=== PATIENT | female | born 1990 | race Hispanic/Latino ===

== ENCOUNTER 2018-07-02 10:24 | Emergency (ER) | payer MEDICAID, MEDICARE ==
[2018-07-02 11:21] LABS: Bilirubin Negative (Negative); Blood, Urine Negative (Negative); Clarity CLEAR (Clear); Glucose, Urine (Dipstick) Negative (Negative); Leukocyte Negative (Negative); Nitrite Negative (Negative); Protein, Urine (Dipstick) Negative (Neg-Trace); Specific Gravity, Urine 1.013 (1.002-1.036); Urobilinogen 0.2 mg/dL (0.2-1.0); pH, Urine 6.5 (5.0-9.0)
[2018-07-02 11:22] LABS: Pregnancy Test - Urine (BHCG) Negative (Negative); Pregu Control Background? CLEAR/WHITE (CLR/WHITE); Pregu Control Bar Appear? YES (CONTROL BAR); Specific Gravity 1.013 (1.002-1.036)
[2018-07-02 11:29] LABS: #Basophils 0.1 thou/uL (0.0-0.2); #Eosinphils 0.1 thou/uL (0.0-0.7); #Lymphocytes 2.7 thou/uL (1.20-3.40); #Monocytes 0.4 thou/uL (0.11-0.59); #Neutrophils 6.7 thou/uL (1.40-6.50); %Basophils 0.6 % (0.0-1.0); %Lymphocytes 27.2 % (21.0-51.0); %Monocytes 3.5 % (0.0-10.0); %Neutrophils 67.6 % (42.0-75.0); Hemoglobin 14.7 g/dL (12.0-16.0); Mean Corpuscular HGB CONC 32.9 g/dL (32.0-36.0); Mean Corpuscular Hemoglobin 29.9 pg (27.0-31.0); Mean Corpuscular Volume 90.9 fL (78.0-98.0); Mean Platelet Volume 7.7 fL (7.4-10.4); Platelet Count 282 thou/uL (130-400); RBC Distribution Width 13.1 % (11.5-14.5); Red Blood Cell (RBC) Count 4.91 mill/uL (4.20-5.40); White Blood Cell (WBC) Count 9.9 thou/uL (4.8-10.8)
== END 2018-07-02 12:28 | disposition home or self-care (01) ==
LOC: ERS 10:24
DX: N76.0 Acute vaginitis (principal); F17.210 Nicotine dependence, cigarettes, uncomplicated
CPT/HCPCS: 36415; 81003; 81025; 85025; 87086; 99284

== ENCOUNTER 2018-07-12 18:20 | Emergency (ER) | payer MEDICAID, OTHER ==
[2018-07-12] MEDS ORDERED: Lidocaine 1% w/Epinephrine 1:100K 20 ML VIAL ONE (19:42)
[2018-07-12] MEDS ORDERED: Adacel (T-DAP) 0.5 ML SYRINGE ONE (19:42)
[2018-07-12] MEDS ORDERED: Bacitracin Zinc 1 Packet ONE (21:00)
== END 2018-07-12 21:10 | disposition home or self-care (01) ==
LOC: ERS 18:20
DX: S51.812A Laceration without foreign body of left forearm, initial encounter (principal); F32.9 Major depressive disorder, single episode, unspecified; F17.210 Nicotine dependence, cigarettes, uncomplicated; W26.8XXA Contact with other sharp object(s), not elsewhere classified, initial encounter
CPT/HCPCS: 12002; 90471; 90715; J2001

== ENCOUNTER 2018-09-22 09:45 | Emergency (ER) | payer OTHER ==
[2018-09-22 10:35] LABS: Bilirubin Negative (Negative); Blood, Urine Negative (Negative); Glucose, Urine (Dipstick) Negative (Negative); Leukocyte Negative (Negative); Nitrite Negative (Negative); Protein, Urine (Dipstick) Negative (Neg-Trace); Urobilinogen 0.2 mg/dL (Less than 2)
[2018-09-22 10:36] LABS: Clarity Clear (Clear)
[2018-09-22] MEDS ORDERED: Acetaminophen 500 MG TAB ONE (10:54)
== END 2018-09-22 11:10 | disposition home or self-care (01) ==
LOC: ERS 09:45
DX: O26.892 Other specified pregnancy related conditions, second trimester (principal); R10.9 Unspecified abdominal pain; O99.342 Other mental disorders complicating pregnancy, second trimester; F32.9 Major depressive disorder, single episode, unspecified; O99.332 Smoking (tobacco) complicating pregnancy, second trimester; F17.210 Nicotine dependence, cigarettes, uncomplicated; Z3A.14 14 weeks gestation of pregnancy
CPT/HCPCS: 81003; 99283

== ENCOUNTER 2018-11-01 16:58 | Day surgery (SDC) | payer OTHER ==
[2018-11-01 18:45] VITALS: BMI 28.0
[2018-11-01] MEDS ORDERED: hydrALAZINE 20 MG/ML VIAL SLOW IVP PRN (19:00)
--- NOTE | 2018-11-01 19:24 | PDOC.LDHP ---
Labor and Delivery H&P Chief complaint: contractions HPI: 28 y/o at 20w1d, patient of Dr. Zurita, presents with ctx twice a day for the last 2 weeks. Also complains of some white discharge. Denies any other complaints. +FM ROS neg for HEENT, CV, pulm, gi, gu, neuro, psych, skin, musculoskeletal or constitutional symptoms other than mentioned above. OB History Details: 2 prior SVDs 2 prior LTCS Current complications: none Past Medical History: Depression Previous surgical history: low tranverse CS (x2), appendectomy Allergies/Adverse Reactions: Allergies Allergy/AdvReac Type Severity Reaction Status Date / Time No Known Allergies Allergy Verified 11/01/18 18:39 Social history: none - Physical Exam Vital signs reviewed and normal: yes General: NAD, resting Lungs: nonlabored breathing Abdomen: gravid Extremeties: no edema [place] contractions every: None - Assessment 28 y/o at 20w1d with no e/o PTL. +FHTs. VP3 pending. - Plan -: D/c home with precautions. Will call if VP3 result requires treatment.
== END 2018-11-01 19:35 | disposition home or self-care (01) ==
LOC: ERS 16:58 → L&D/OP 17:58
PROVIDERS: ATTEND Student in an Organized Health Care Education/Training Program
DX: O47.02 False labor before 37 completed weeks of gestation, second trimester (principal); O99.89 Other specified diseases and conditions complicating pregnancy, childbirth and the puerperium; N89.8 Other specified noninflammatory disorders of vagina; Z3A.20 20 weeks gestation of pregnancy
CPT/HCPCS: 87480; 87510; 87660; 99283

== ENCOUNTER 2019-02-10 00:06 | Day surgery (SDC) | payer OTHER ==
[2019-02-10 01:12] VITALS: BMI 31.3
[2019-02-10] MEDS ORDERED: hydrALAZINE 20 MG/ML VIAL SLOW IVP PRN (01:31)
--- NOTE | 2019-02-10 01:41 | PDOC.EVN ---
Event Note - Event Note Event Note: Patient seen at [facility] Dictated Cx Closed per RN exam We will OBS in L&D
--- NOTE | 2019-02-10 02:26 | HP ---
This is a patient of Dr. Zurita. CHIEF COMPLAINT: This is a 28-year-old with a complaint of possible contractions. HISTORY OF PRESENT ILLNESS: The patient is a 28-year-old, G5, P4, at 34 weeks and 5 days with a complaint of possible contractions. She denies vaginal bleeding or leakage of fluid and has good movement. She has a prior x2. REVIEW OF SYSTEMS: Complete review of systems was checked and is otherwise negative unless specified in the HPI. PAST MEDICAL HISTORY: Noncontributory. PAST SURGICAL HISTORY: x2. ALLERGIES: NONE. PHYSICAL EXAMINATION: VITAL SIGNS: Her vital signs are stable, and she is afebrile. She is normotensive. GENERAL: Clinically, she is in no acute distress and does not appear to be laboring clinically. ABDOMEN: Soft and nontender. CERVIX: Cervical exam is pending. There is no gross evidence of rupture or vaginal bleeding. On monitor, heart tones are reactive and there is uterine irritability. But no contraction pattern. ASSESSMENT: This is a G5, P4, at 34 weeks and 5 days with possible contractions versus [place]. She has section x2. PLAN: 1. Check cervix. 2. monitoring. 3. Consider labor and delivery observation. 4. Would need a if she is actively laboring. 5. If she is actively laboring, consider Celestone for lung maturation as she is less than 36 weeks and 6 days. Job ID: [id number]
== END 2019-02-10 03:50 | disposition home or self-care (01) ==
LOC: L&D/OP 00:06
PROVIDERS: ATTEND Student in an Organized Health Care Education/Training Program
DX: O47.03 False labor before 37 completed weeks of gestation, third trimester (principal); Z3A.34 34 weeks gestation of pregnancy
CPT/HCPCS: 99283

== ENCOUNTER 2019-02-14 17:05 | Emergency (ER) | payer OTHER ==
[2019-02-14] MEDS ORDERED: Metoclopramide HCl 10 MG/2 ML VIAL ONE (18:08)
[2019-02-14] MEDS ORDERED: Metoclopramide HCl 10 MG TAB PO SCH (18:15)
== END 2019-02-14 19:40 | disposition home or self-care (01) ==
LOC: ERS 17:05
DX: B34.9 Viral infection, unspecified (principal); F32.9 Major depressive disorder, single episode, unspecified; F17.210 Nicotine dependence, cigarettes, uncomplicated
CPT/HCPCS: 87804; 99284; J2765

== ENCOUNTER 2019-03-08 05:21 | Inpatient (IN) | payer OTHER ==
[2019-03-08] MEDS ORDERED: hydrALAZINE 20 MG/ML VIAL SLOW IVP PRN ×2 (05:49→10:26)
[2019-03-08] MEDS ORDERED: Ondansetron PF 4 MG/2 ML Vial IVP PRN ×3 (05:49→10:26)
[2019-03-08] MEDS ORDERED: CEFAZOLIN 2 GM in Premix Bag 1 BAG IVPB SCH (05:49)
[2019-03-08] MEDS ORDERED: Bicitra 30 ML UDCUP PO SCH (05:49)
[2019-03-08] MEDS ORDERED: Promethazine HCl 25 MG/ML VIAL IM PRN ×3 (05:49→10:26)
[2019-03-08 05:58] VITALS: BMI 32.0
[2019-03-08 06:04] LABS: Hemoglobin 12.8 g/dL (12.0-16.0); Mean Corpuscular HGB CONC 34.7 g/dL (32.0-36.0); Mean Corpuscular Hemoglobin 31.4 pg (27.0-31.0); Mean Corpuscular Volume 90.5 fL (78.0-98.0); Mean Platelet Volume 7.4 fL (7.4-10.4); Platelet Count 217 thou/uL (130-400); RBC Distribution Width 11.6 % (11.5-14.5); Red Blood Cell (RBC) Count 4.07 mill/uL (4.20-5.40); White Blood Cell (WBC) Count 10.3 thou/uL (4.8-10.8)
[2019-03-08 06:41] LABS: HBSAg Index 0.23 S/CO (0-0.99); Hep B Surf Ag Non-Reactive S/CO (NonReactive)
[2019-03-08] MEDS ORDERED: Oxytocin 10 UNITS/ML VIAL ONE ×2 (06:45→08:06)
[2019-03-08] MEDS ORDERED: MORPHINE 5 MG/10 ML PF VIAL ONE (06:45)
[2019-03-08 06:47] LABS: Syphilis Antibody Nonreactive (Nonreactive); Syphilis Antibody Index 0.05 S/CO (<1.00 Non-Reactive)
[2019-03-08] MEDS: Lactated Ringer's 1,000 ML IV SCH ×2 (07:27→09:18)
--- NOTE | 2019-03-08 07:36 | PDOC.LDHP ---
Labor and Delivery H&P Chief complaint: scheduled section HPI: 28yo at 38w2d by LMP here for RCS due to IUGR. No complaints, good FM. Current gestational age (weeks): 38 Due date: 03/20/19 Dating criteria: last menstrual period Grav: 5 Para: 4 Current complications: IUGR Abnormal US findings: Yes (IUGR EFW < 10%ile) Past Medical History: denies Current medications: pre- vitamins Previous surgical history: low tranverse CS Allergies/Adverse Reactions: Allergies Allergy/AdvReac Type Severity Reaction Status Date / Time No Known Allergies Allergy Verified 02/10/19 01:13 Social history: tobacco use - Physical Exam Vital signs reviewed and normal: yes General: NAD Heart: RRR Lungs: CTAB Abdomen: gravid Extremeties: no edema FHT: category 1 [place] contractions every: none - OB Labs Blood type: O RH: positive Antibody Screen: negative HIV: negative RPR: negative HEPSAg: negative 1 hour GCT: negative GBS: negative Urine drug screen: negative Rubella: immune - Assessment L&D Assessment: scheduled repeat section - Plan Plan: admit to L&D, to OR for section, informed consent obtained, anesthesia consult for pain management
[2019-03-08] MEDS ORDERED: L&D-Morphine 4 MG/ML VIAL SLOW IVP PRN (08:08)
[2019-03-08] MEDS ORDERED: Naloxone HCl 0.4 mg/ml Vial IV PRN (08:08)
[2019-03-08] MEDS ORDERED: Meperidine HCl/PF 25 MG/ML VIAL SLOW IVP PRN (08:08)
[2019-03-08] MEDS ORDERED: HYDROmorphone 2 MG/ML VIAL SLOW IVP PRN (08:08)
[2019-03-08] MEDS ORDERED: diphenhydrAMINE 50 MG/ML VIAL IVP PRN (08:08)
[2019-03-08] MEDS ORDERED: Promethazine HCl 25 MG SUPP PR PRN (08:08)
[2019-03-08] MEDS ORDERED: Ondansetron HCl/PF 4 MG/2 ML Vial IVP PRN (08:08)
[2019-03-08] MEDS ORDERED: Naloxone HCl 0.4 mg/ml Vial IVP PRN ×2 (08:08)
[2019-03-08] MEDS ORDERED: Communication Order-Pharmacy FS SCH (08:15)
--- NOTE | 2019-03-08 08:20 | PDOC.OPDEL ---
OB Operative/Delivery Note Delivery Dr/Surgeon: Parminder Assist: Danae Pre-Delivery Diagnosis: scheduled section Procedure/Post Delivery Dx: repeat low transverse CS Weeks gestation: 38 Anesthesia: spinal - Findings A Sex: female - 1 min: 8 - 5 min: 9 - Additional Findings/Plan Placenta delivered: spontaneous findings: low transverse hysterotomy without extension, normal uterus, normal tubes, normal ovaries Estimated blood loss: 300 Compilations/Other Findings: NC x 1 Post delivery plan: routine recovery
[2019-03-08] MEDS ORDERED: diphenhydrAMINE 50 MG/ML VIAL ONE (10:08)
[2019-03-08] MEDS ORDERED: diphenhydrAMINE 25 MG CAP PO PRN (10:26)
[2019-03-08] MEDS ORDERED: Lanolin Ointment 7 GM TUBE TOP PRN (10:26)
[2019-03-08] MEDS ORDERED: Bisacodyl 10 MG SUPP PR PRN (10:26)
[2019-03-08] MEDS ORDERED: PHENYLEPHRINE-NS 100 MCG/ML 10 ML SYRINGE ONE ×2 (12:29)
[2019-03-08] MEDS ORDERED: Metoclopramide HCl 10 MG/2 ML VIAL ONE (12:29)
[2019-03-08] MEDS ORDERED: Ondansetron PF 4 MG/2 ML Vial ONE (12:29)
[2019-03-08] MEDS ORDERED: Dexamethasone 20 MG/5 ML VIAL ONE (12:29)
[2019-03-08] MEDS ORDERED: Ketorolac Tromethamine 30 MG/ML VIAL ONE (12:29)
[2019-03-08] MEDS: Ibuprofen 800 MG TAB PO SCH ×2 (14:08→21:38)
[2019-03-08] MEDS: Acetaminophen 325 MG TAB PO PRN ×2 (14:12→18:14)
[2019-03-08] MEDS ORDERED: Ketorolac Tromethamine 30 MG/ML VIAL IVP PRN (16:00)
[2019-03-08] MEDS ORDERED: Zolpidem Tartrate 5 MG TAB PO PRN (21:00)
[2019-03-08] MEDS ORDERED: HYDROcodone/Acetaminophen 5/325 mg Tablet PO PRN (21:00)
[2019-03-08] MEDS: Docusate Calcium (SURFAK) 240 MG CAP PO SCH (21:38)
[2019-03-08] MEDS: Ferrous Sulfate 325 MG TAB PO SCH (21:41)
[2019-03-08] MEDS: Simethicone Chewable 80 MG TAB PO PRN (22:54)
[2019-03-09] MEDS: Ibuprofen 800 MG TAB PO SCH ×3 (05:24→22:00)
[2019-03-09 06:08] LABS: Mean Corpuscular HGB CONC 34.4 g/dL (32.0-36.0); Mean Corpuscular Hemoglobin 31.9 pg (27.0-31.0); Mean Corpuscular Volume 92.9 fL (78.0-98.0); Mean Platelet Volume 7.2 fL (7.4-10.4); Platelet Count 188 thou/uL (130-400); RBC Distribution Width 11.6 % (11.5-14.5); Red Blood Cell (RBC) Count 3.44 mill/uL (4.20-5.40); White Blood Cell (WBC) Count 12.1 thou/uL (4.8-10.8)
--- NOTE | 2019-03-09 07:31 | PDOC.PP ---
Post Progress Note Post Day #: 1 Subjective: 28 yo F pp day 1 s/p rLTCS. Pt reports pain well controlled, ambulating, passing flatus, scant lochia. PO intake tolerated: yes Flatus: yes Ambulation: yes Vital Signs (12 hours) Temp Pulse Resp BP Pulse Ox 03/09/19 04:25 98.2 F 84 14 97/57 L 97 03/09/19 00:20 98.0 F 77 16 109/73 97 03/08/19 20:32 98.3 F 69 16 104/55 L 96 Weight Weight 98.43 kg - Physical Examination General: NAD Cardiovascular: no m/r/g, RRR Respiratory: clear to auscultation bilaterally, non-labored breathing Abdominal: + bowel sounds, lochia, no distention, appropriately TTP Extremities: negative homans (B) Skin: CS incision dry & intact, no rash Neurological: no gross focal deficits Psychiatric: normal affect Result Diagrams: 03/09/19 05:56 Additional Labs: Post Labs Blood Type O POSITIVE 03/08/19 06:10 Hep Bs Antigen Non-Reactive S/CO (NonReactive) 03/08/19 05:55 (1) History of delivery Code(s): Z98.891 - HISTORY OF UTERINE SCAR FROM PREVIOUS SURGERY Status: Acute - Assessment/Plan 1) rLTCS - pp day one - pain well controlled - mod ttp abdomen, but report pain well controlled - VS stable and WNL - all pp milestones met - possible dc to home tomorrow Addendum - Attending - Attending Attestation Date/Time: 03/09/19 [id number] I personally evaluated the patient and discussed the management with Dr. Alba. I agree with the History, Examination, Assessment and Plan documented above.
[2019-03-09] MEDS: Prenatal Vitamin 1 TAB PO SCH (09:54)
[2019-03-09] MEDS: Ferrous Sulfate 325 MG TAB PO SCH ×2 (09:54→22:09)
[2019-03-09] MEDS: Simethicone Chewable 80 MG TAB PO PRN (09:54)
[2019-03-09] MEDS: Docusate Calcium (SURFAK) 240 MG CAP PO SCH ×2 (09:54→22:00)
--- NOTE | 2019-03-09 10:12 | OP ---
DATE OF PROCEDURE: 03/08/2019 PREOPERATIVE DIAGNOSES: 1. Intrauterine at 38 weeks and 2 days. 2. Intrauterine growth restriction. 3. Prior x2. POSTOPERATIVE DIAGNOSES: 1. Intrauterine at 38 weeks and 2 days. 2. Intrauterine growth restriction. 3. Prior x2. PROCEDURE PERFORMED: Repeat low-transverse section via Pfannenstiel skin incision. ANESTHESIA: Spinal. ESTIMATED BLOOD LOSS: 300 mL. COMPLICATIONS: None. DRAINS: Bond catheter. PATHOLOGY: Placenta. FINDINGS: Female in cephalic presentation. Nuchal cord x1. Clear amniotic fluid. Apgars 8 and 9. Weight is pending. Hysterotomy without extension. Normal uterus, ovaries, and tubes bilaterally. Excellent hemostasis. DESCRIPTION OF PROCEDURE: The patient was taken to the operating room, where spinal anesthesia was obtained without difficulty. The patient was prepped and draped in a sterile fashion in the dorsal supine position with a leftward tilt. After ensuring adequacy of anesthesia, a Pfannenstiel skin incision was made and carried out to the underlying subcutaneous tissue with the knife. The fascia was nicked in the midline with the knife and carried laterally with the Mcleod scissors. The superior aspect of the fascia was tented with 2 Tri's and dissected off the rectus with the Mcleod's. The inferior aspect of the fascia was tented with 2 Tri's and dissected off the rectus with the Mcleod's as well down to the pubic symphysis. The peritoneum was bluntly entered into and manually retracted. The Son O retractor was placed and the vesicouterine peritoneum was incised with a Metzenbaum and a bladder flap was created digitally. The lower uterine segment was incised in a transverse fashion and extended with a Craig maneuver. The 's head was brought to the hysterotomy and delivered atraumatically with fundal pressure followed by the body. The 's cord was clamped after delay cord clamping and infant handed to awaiting Hansel team. Cord blood was obtained and the placenta was allowed to spontaneously deliver. The uterus was exteriorized, cleared off all clots and debris and the posterior cul-de-sac was left out. The uterus was placed back into the abdomen and hysterotomy was repaired with #1 Monocryl in a running locking fashion with excellent hemostasis noted. The pelvis was irrigated and suctioned. Hemostasis was again noted. The Son O retractor was removed. The rectus muscles were examined and noted to be hemostatic. The fascia was reapproximated with 0 PDS x2 sutures with excellent reapproximation. The subcutaneous tissue was irrigated and cauterized of any bleeders and reapproximated with a 2-0 plain gut in a running fashion. The skin was closed with 4-0 Monocryl in a subcuticular fashion. Dermabond was applied as well as a pressure dressing. The patient tolerated the procedure well. Sponge, lap, and needle counts correct x2. The patient was taken to recovery room in stable condition. The patient received Ancef 2 g prior to the procedure. Job ID: [id number]
[2019-03-09] MEDS ORDERED: Adacel (T-DAP) 0.5 ML SYRINGE IM ONE (10:26)
[2019-03-09] MEDS: HYDROcodone/Acetaminophen 5/325 mg Tablet PO PRN (19:05)
[2019-03-10] MEDS: HYDROcodone/Acetaminophen 5/325 mg Tablet PO PRN ×2 (04:09→09:23)
[2019-03-10] MEDS: Ibuprofen 800 MG TAB PO SCH (06:12)
--- NOTE | 2019-03-10 07:05 | DIS ---
DATE OF ADMISSION: 03/08/2019 DATE OF DISCHARGE: 03/10/2019 PRINCIPAL PROCEDURE: Repeat low-transverse section via Pfannenstiel with date of surgery, March 08, 2019. OTHER DIAGNOSES: 1. History of previous section. 2. Suspected intrauterine growth restriction. HOSPITAL COURSE: In brief, the patient was admitted on March 08, 2019, for repeat with Dr. Zurita. For full details, please see the operative dictation dated that day. She had an uncomplicated with an estimated blood loss of 300 mL. Skin was closed with suture and no complications were noted. I evaluated the patient on March 10, 2019, and found her to be in no acute distress. She was breast-feeding, sitting up in the bed when I saw her in the morning of discharge. On the morning of discharge, the patient's vital signs (latest) revealed a temperature of 98.1, pulse of 80, blood pressure of 96/55. Blood pressure previously, that was 124/71. Laboratory data showed a predelivery hematocrit of 36, value of 31.9. On admission labs, syphilis and hepatitis B surface antigen were both nonreactive. Decision was made, at the patient's request, to send the patient home on March 10, 2019, which is postop day 2. A prescription was given for Motrin and Tylenol No. 3. Only 10 tablets of Tylenol No. 3 were given. I examined the incision and found it to be clean, dry, and intact. No evidence of an infection was noted. I instructed the patient to have follow up in 2 to 4 weeks for routine postop/ care. The plan was made to discharge the patient after 1800 hours (6:00 p.m.) when her transportation would arrive. Job ID: [id number]
[2019-03-10 09:02] VITALS: BP 110/55; TEMP 98.9
[2019-03-10] MEDS: Prenatal Vitamin 1 TAB PO SCH (09:23)
[2019-03-10] MEDS: Docusate Calcium (SURFAK) 240 MG CAP PO SCH (09:23)
[2019-03-10] MEDS: Simethicone Chewable 80 MG TAB PO PRN (09:24)
[2019-03-10] MEDS: Ferrous Sulfate 325 MG TAB PO SCH (09:36)
[2019-03-11 12:08] LABS: Toxoplasma IgG AB Less than 3.0 IU/mL (0.0-7.1)
[2019-03-11 16:09] LABS: Toxoplasma IgM AB 10.7 AU/mL (0.0-7.9)
== END 2019-03-10 13:30 | disposition home or self-care (01) | DRG 788 ==
LOC: L&D-LIB 05:21 → 3SW 11:20
PROVIDERS: ADMIT Student in an Organized Health Care Education/Training Program; ATTEND Student in an Organized Health Care Education/Training Program
PROC: 10D00Z1 Extraction of Products of Conception, Low, Open Approach (ICD-10-PCS; principal; 2019-03-08)
DX: O36.5930 Maternal care for other known or suspected poor fetal growth, third trimester, not applicable or unspecified (principal); O69.81X0 Labor and delivery complicated by cord around neck, without compression, not applicable or unspecified; O34.211 Maternal care for low transverse scar from previous cesarean delivery; Z3A.38 38 weeks gestation of pregnancy; Z37.0 Single live birth
CPT/HCPCS: 36415; 51702; 85027; 86777; 86778; 86780; 86850; 86900; 86901; 87340; 88307; J0690; J1100; J1200; J1885; J2274; J2405; J2590; J2765; Q0163

== ENCOUNTER 2019-08-05 11:21 | Outpatient (CLI) | payer OTHER ==
--- NOTE | 2019-08-05 12:36 | RAD ---
EXAM: 2 views of the right calcaneus HISTORY: Heel pain COMPARISON: None FINDINGS: There is no evidence of acute fracture or dislocation. No soft tissue swelling is seen. No significant calcaneal spurs are seen. IMPRESSION: No evidence of acute osseous abnormality.
--- NOTE | 2019-08-05 12:49 | RAD ---
RADIOGRAPH CERVICAL SPINE 3 VIEWS: DATE: 08/05/2019 HISTORY: 29-year-old female with low back pain and intermittent lumbar radiculopathy FINDINGS: There is a transitional level at lumbosacral junction. For the purposes of this report, the first non rib-bearing vertebra will be designated as L1. The transitional level will be designated as L6. Dysplastic right L6 transverse process pseudoarticulating with right sacral ala. There is exaggerated lordosis. Alignment is normal. Vertebral body heights and disc spaces are maintained. There is no prevertebral soft tissue swelling. There is no fracture, significant osteophytes, or any other focal osseous abnormality. 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 2) exaggerated lordosis. 3) otherwise negative
== END 2019-08-05 11:22 | disposition home or self-care (01) ==
LOC: BICRAD 11:21
PROVIDERS: ATTEND Family Medicine
DX: M54.5 Low back pain (principal); M79.671 Pain in right foot; M40.50 Lordosis, unspecified, site unspecified
CPT/HCPCS: 72100

== ENCOUNTER 2019-09-02 11:57 | Emergency (ER) | payer OTHER ==
[2019-09-03 15:26] LABS: SARS-CoV-2 MS2 Positive; SARS-CoV-2 N Gene Negative; SARS-CoV-2 S Gene Negative; SARS-CoV-2 orf1ab Negative
== END 2019-09-02 12:23 | disposition home or self-care (01) ==
LOC: ERS 11:57
DX: Z20.828 Contact with and (suspected) exposure to other viral communicable diseases (principal); F32.9 Major depressive disorder, single episode, unspecified; F17.210 Nicotine dependence, cigarettes, uncomplicated
CPT/HCPCS: 87635; 99283; U0003

== ENCOUNTER 2020-01-22 16:09 | Emergency (ER) | payer OTHER ==
[2020-01-22 22:34] LABS: SARS-CoV-2 MS2 Positive; SARS-CoV-2 N Gene Negative; SARS-CoV-2 S Gene Negative; SARS-CoV-2 by NAA Not Detected (NotDetected); SARS-CoV-2 orf1ab Negative
== END 2020-01-22 16:40 | disposition home or self-care (01) ==
LOC: ERS 16:09
DX: Z20.828 Contact with and (suspected) exposure to other viral communicable diseases (principal); F32.9 Major depressive disorder, single episode, unspecified; F17.210 Nicotine dependence, cigarettes, uncomplicated
CPT/HCPCS: 87635; 99283; U0003

== ENCOUNTER 2020-01-30 14:49 | Emergency (ER) | payer BC, OTHER | END 2020-01-30 15:45 | disposition home or self-care (01) | LOC: ERS 14:49 | DX: R05 Cough (principal); Z20.828 Contact with and (suspected) exposure to other viral communicable diseases; F17.210 Nicotine dependence, cigarettes, uncomplicated | CPT/HCPCS: 99283 ==

== ENCOUNTER 2020-04-20 14:45 | Emergency (ER) | payer BC, OTHER | END 2020-04-20 16:12 | disposition left against medical advice (07) | LOC: ERS 14:45 | DX: Z53.21 Procedure and treatment not carried out due to patient leaving prior to being seen by health care provider (principal) ==

== ENCOUNTER 2020-11-16 03:52 | Emergency (ER) | payer OTHER ==
[2020-11-16] MEDS ORDERED: Ketorolac Tromethamine 30 MG/ML VIAL ONE (04:06)
== END 2020-11-16 04:38 | disposition home or self-care (01) ==
LOC: ERS 03:52
DX: K03.81 Cracked tooth (principal); K02.9 Dental caries, unspecified; F17.210 Nicotine dependence, cigarettes, uncomplicated
CPT/HCPCS: 96372; 99282; J1885

== ENCOUNTER 2021-01-05 16:50 | Emergency (ER) | payer OTHER | END 2021-01-05 17:39 | disposition left against medical advice (07) | LOC: ERS 16:50 | DX: Z53.21 Procedure and treatment not carried out due to patient leaving prior to being seen by health care provider (principal) ==

== ENCOUNTER 2021-01-05 18:45 | Emergency (ER) | payer OTHER | END 2021-01-05 19:08 | disposition home or self-care (01) | LOC: ERS 18:45 | DX: S63.91XA Sprain of unspecified part of right wrist and hand, initial encounter (principal); X50.1XXA Overexertion from prolonged static or awkward postures, initial encounter | CPT/HCPCS: 99283 ==

== ENCOUNTER 2021-06-29 16:05 | Emergency (ER) | payer OTHER ==
[2021-06-29 18:00] LABS: #Eosinphils 0.1 thou/uL (0.0-0.7); #Lymphocytes 2.7 thou/uL (1.20-3.40); #Monocytes 0.7 thou/uL (0.11-0.59); #Neutrophils 7.5 thou/uL (1.40-6.50); %Basophils 0.1 % (0.0-1.0); %Eosinophils 1.3 % (0.0-10.0); %Lymphocytes 24.7 % (21.0-51.0); %Monocytes 6.2 % (0.0-10.0); %Neutrophils 67.6 % (42.0-75.0); Hemoglobin 14.5 g/dL (12.0-16.0); Mean Corpuscular HGB CONC 33.1 g/dL (32.0-36.0); Mean Corpuscular Hemoglobin 31.1 pg (27.0-31.0); Mean Platelet Volume 7.5 fL (7.4-10.4); Platelet Count 268 thou/uL (130-400); Red Blood Cell (RBC) Count 4.65 mill/uL (4.20-5.40)
[2021-06-29 18:31] LABS: Bilirubin Negative (Negative); Blood, Urine Negative (Negative); Clarity Clear (Clear); Glucose, Urine (Dipstick) Normal (Negative); Ketone, Urine Negative (Negative); Leukocyte Negative Leu/uL (Negative); Nitrite Negative (Negative); Protein, Urine (Dipstick) Negative (Neg-Trace); Specific Gravity, Urine 1.019 (1.002-1.036); Urobilinogen Normal mg/dL (Less than 2)
[2021-06-30 15:16] LABS: Chlamydia by PCR Not Detected (NotDetected); GC by PCR Not Detected (NotDetected)
== END 2021-06-29 19:07 | disposition home or self-care (01) ==
LOC: ERS 16:05
DX: O20.0 Threatened abortion (principal); O99.891 Other specified diseases and conditions complicating pregnancy; R19.7 Diarrhea, unspecified; O99.331 Smoking (tobacco) complicating pregnancy, first trimester; F17.210 Nicotine dependence, cigarettes, uncomplicated; Z3A.01 Less than 8 weeks gestation of pregnancy
CPT/HCPCS: 36415; 76856; 81003; 84702; 85025; 86900; 86901; 87480; 87491; 87510; 87591; 87660; 94760

== ENCOUNTER 2021-08-17 08:49 | Emergency (ER) | payer OTHER | END 2021-08-17 11:11 | disposition home or self-care (01) | LOC: ERS 08:49 | DX: R05.9 Cough, unspecified (principal); R51.9 Headache, unspecified; R19.7 Diarrhea, unspecified; R52 Pain, unspecified; Z20.822 Contact with and (suspected) exposure to COVID-19; F17.210 Nicotine dependence, cigarettes, uncomplicated | CPT/HCPCS: 87804; 99283; U0003; U0005 ==

== ENCOUNTER 2021-08-23 14:15 | Emergency (ER) | payer OTHER ==
[2021-08-23 14:40] LABS: #Eosinphils 0.1 thou/uL (0.0-0.7); #Lymphocytes 2.5 thou/uL (1.20-3.40); #Monocytes 0.4 thou/uL (0.11-0.59); #Neutrophils 5.6 thou/uL (1.40-6.50); %Basophils 0.3 % (0.0-1.0); %Eosinophils 1.2 % (0.0-10.0); %Lymphocytes 29.4 % (21.0-51.0); %Monocytes 4.7 % (0.0-10.0); %Neutrophils 64.4 % (42.0-75.0); Hemoglobin 12.5 g/dL (12.0-16.0); Mean Corpuscular HGB CONC 34.2 g/dL (32.0-36.0); Mean Corpuscular Hemoglobin 32.2 pg (27.0-31.0); Mean Corpuscular Volume 94.1 fL (78.0-98.0); Mean Platelet Volume 7.1 fL (7.4-10.4); Platelet Count 267 thou/uL (130-400); RBC Distribution Width 11.5 % (11.5-14.5); Red Blood Cell (RBC) Count 3.88 mill/uL (4.20-5.40); White Blood Cell (WBC) Count 8.6 thou/uL (4.8-10.8)
[2021-08-23 15:03] LABS: ALT (SGPT) 18 U/L (8-55); AST (SGOT) 19 U/L (5-34); Albumin 3.7 g/dL (3.5-5.0); Alkaline Phosphatase 60 U/L (40-110); Anion Gap 12 mmol/L (10-20); BUN (Urea Nitrogen) 10 mg/dL (7.0-18.7); Bilirubin, Total 0.6 mg/dL (0.2-1.2); Calc. Creatinine Clearance 0 mL/min (70-130); Carbon Dioxide 22 mmol/L (22-29); Chloride 105 mmol/L (98-107); Estimated GFR 119; Globulin 3.1 g/dL (2.4-3.5); Glucose 98 mg/dL (70-105); Potassium 4.4 mmol/L (3.5-5.1); Protein, Total 6.8 g/dL (6.0-8.3); Sodium 135 mmol/L (136-145)
[2021-08-23] MEDS ORDERED: Lidocaine Viscous Sol 2% 15 ml UD Cup ONE (15:41)
[2021-08-23] MEDS ORDERED: Mag-Al 1200 mg/1200 mg/30 ML UDCUP ONE (15:41)
[2021-08-23 16:00] LABS: Bilirubin Negative (Negative); Blood, Urine Negative (Negative); Clarity Clear (Clear); Glucose, Urine (Dipstick) Normal (Negative); Ketone, Urine Negative (Negative); Leukocyte Negative Leu/uL (Negative); Nitrite Negative (Negative); Protein, Urine (Dipstick) Negative (Neg-Trace); Specific Gravity, Urine 1.003 (1.002-1.036); Urobilinogen Normal mg/dL (Less than 2)
== END 2021-08-23 16:26 | disposition home or self-care (01) ==
LOC: ERS 14:15
DX: O99.891 Other specified diseases and conditions complicating pregnancy (principal); R10.13 Epigastric pain; O99.332 Smoking (tobacco) complicating pregnancy, second trimester; F17.210 Nicotine dependence, cigarettes, uncomplicated; Z3A.15 15 weeks gestation of pregnancy
CPT/HCPCS: 36415; 80053; 81003; 82274; 83690; 85025; 93005

== ENCOUNTER 2021-10-01 21:55 | Emergency (ER) | payer OTHER ==
[2021-10-01] MEDS ORDERED: Acetaminophen 500 MG TAB ONE (22:41)
[2021-10-01 23:02] LABS: #Eosinphils 0.2 thou/uL (0.0-0.7); #Lymphocytes 2.4 thou/uL (1.20-3.40); #Monocytes 0.5 thou/uL (0.11-0.59); #Neutrophils 6.1 thou/uL (1.40-6.50); %Basophils 0.3 % (0.0-1.0); %Eosinophils 1.7 % (0.0-10.0); %Lymphocytes 25.8 % (21.0-51.0); %Monocytes 5.9 % (0.0-10.0); %Neutrophils 66.4 % (42.0-75.0); Hemoglobin 11.6 g/dL (12.0-16.0); Mean Corpuscular HGB CONC 35.2 g/dL (32.0-36.0); Mean Corpuscular Volume 93.8 fL (78.0-98.0); Mean Platelet Volume 7.6 fL (7.4-10.4); Platelet Count 243 thou/uL (130-400); RBC Distribution Width 11.3 % (11.5-14.5); Red Blood Cell (RBC) Count 3.52 mill/uL (4.20-5.40); White Blood Cell (WBC) Count 9.2 thou/uL (4.8-10.8)
[2021-10-01 23:19] LABS: ALT (SGPT) 11 U/L (8-55); AST (SGOT) 13 U/L (5-34); Albumin 3.6 g/dL (3.5-5.0); Alkaline Phosphatase 64 U/L (40-110); Anion Gap 14 mmol/L (10-20); BUN (Urea Nitrogen) 10 mg/dL (7.0-18.7); Bilirubin, Total 0.3 mg/dL (0.2-1.2); Calc. Creatinine Clearance 0 mL/min (70-130); Calcium 9.2 mg/dL (7.8-10.44); Carbon Dioxide 20 mmol/L (22-29); Chloride 105 mmol/L (98-107); Estimated GFR 118; Globulin 2.9 g/dL (2.4-3.5); Glucose 86 mg/dL (70-105); Potassium 4.2 mmol/L (3.5-5.1); Protein, Total 6.5 g/dL (6.0-8.3); Sodium 135 mmol/L (136-145)
== END 2021-10-02 01:31 | disposition home or self-care (01) ==
LOC: ERS 21:55
DX: O99.342 Other mental disorders complicating pregnancy, second trimester (principal); F41.9 Anxiety disorder, unspecified; F43.0 Acute stress reaction; O99.332 Smoking (tobacco) complicating pregnancy, second trimester; F17.210 Nicotine dependence, cigarettes, uncomplicated; Z3A.20 20 weeks gestation of pregnancy
CPT/HCPCS: 36415; 80053; 85025; 93005

== ENCOUNTER 2021-11-15 03:22 | Emergency (ER) | payer OTHER ==
[2021-11-15] MEDS ORDERED: Acetaminophen 500 MG TAB ONE (03:46)
[2021-11-15 04:20] LABS: Bacteria/HPF 1+ HPF (None Seen); Bilirubin Negative (Negative); Blood, Urine Negative (Negative); Clarity Clear (Clear); Glucose, Urine (Dipstick) Normal (Negative); Ketone, Urine Negative (Negative); Leukocyte Negative Leu/uL (Negative); Nitrite Negative (Negative); Protein, Urine (Dipstick) 70 mg/dL (Neg-Trace); Specific Gravity, Urine 1.023 (1.002-1.036); Squamous Epithelial 0-3 HPF (0-3); Urobilinogen Normal mg/dL (Less than 2)
== END 2021-11-15 04:45 | disposition home or self-care (01) ==
LOC: ERS 03:22
DX: O99.891 Other specified diseases and conditions complicating pregnancy (principal); R10.30 Lower abdominal pain, unspecified; O99.332 Smoking (tobacco) complicating pregnancy, second trimester; F17.210 Nicotine dependence, cigarettes, uncomplicated; Z3A.27 27 weeks gestation of pregnancy
CPT/HCPCS: 81003; 81015; 99284

== ENCOUNTER 2022-01-17 20:52 | Emergency (ER) | payer OTHER | END 2022-01-17 21:33 | disposition short-term general hospital (02) | LOC: ERS 20:52 | DX: O60.03 Preterm labor without delivery, third trimester (principal); F17.210 Nicotine dependence, cigarettes, uncomplicated; Z3A.36 36 weeks gestation of pregnancy ==

== ENCOUNTER 2022-10-16 16:52 | Emergency (ER) | payer OTHER | END 2022-10-16 18:23 | disposition home or self-care (01) | LOC: ERS 16:52 | DX: M62.838 Other muscle spasm (principal); F17.210 Nicotine dependence, cigarettes, uncomplicated | CPT/HCPCS: 99283 ==